=== PATIENT | male | born 1960 | race Caucasian/White ===

== ENCOUNTER → 2016-07-03 | Day surgery (SDC) | payer BC ==
[~2016-07-03] MED LIST: ATOR40TA59 PO; CARV6.252 PO; DILT360C PO; FENTANYL PF 100 MCG/2 ML VIAL. IV PRN; HYDROMORPHONE 2 MG/ML VIAL. IV PRN; IV RINGERS,LACTATED 1000ML 1,000 ML IV SCH; LIDOCAINE 1% 1 ML SYRINGE. ID PRN; LIDOCAINE 2% PF Vial for OR 5 ML VIAL. ONE; MORPHINE SULFATE 2 MG/ML DISP.SYRIN. IV PRN; ONDANSETRON PF 4 MG/2 ML VIAL. IV PRN; PROCHLORPERAZINE 10 MG/2 ML VIAL. IV PRN; PROPOFOL 40 ML IV ONE
[2016-07-03 08:50] VITALS: BP 152/86
== END | disposition home or self-care (01) ==
LOC: ENDOS 06:56 → EDBD 06:56
PROVIDERS: ATTEND Internal Medicine Gastroenterology
DX: Z12.11 Encounter for screening for malignant neoplasm of colon (principal); K64.0 First degree hemorrhoids; K57.30 Diverticulosis of large intestine without perforation or abscess without bleeding; E78.00 Pure hypercholesterolemia, unspecified; I10 Essential (primary) hypertension
CPT/HCPCS: 45378; G0500; J2704

== ENCOUNTER → 2018-04-07 | Outpatient (CLI) | payer BC ==
[2016-07-03 08:50] VITALS: BP 152/86
[~2018-04-07] MED LIST changes: +APIX5TAB PO; +ASPI81TA50 PO; +CARV6.2511 PO; -CARV6.252 PO; +CYAN-25 PO; -FENTANYL PF 100 MCG/2 ML VIAL. IV PRN; -HYDROMORPHONE 2 MG/ML VIAL. IV PRN; -IV RINGERS,LACTATED 1000ML 1,000 ML IV SCH; -LIDOCAINE 1% 1 ML SYRINGE. ID PRN; -LIDOCAINE 2% PF Vial for OR 5 ML VIAL. ONE; -MORPHINE SULFATE 2 MG/ML DISP.SYRIN. IV PRN; +OMEG-165 PO; -ONDANSETRON PF 4 MG/2 ML VIAL. IV PRN; -PROCHLORPERAZINE 10 MG/2 ML VIAL. IV PRN; -PROPOFOL 40 ML IV ONE
--- NOTE | 2018-04-07 11:57 | CARD ---
MR#: [id number] Date of Study: 04/07/2018 Ordering Physician: DORON BATRES, Referring Physician: DORON BATRES, Tech: Lisa Rodríguez APPROVED REPORT EXAM: Two-dimensional and M-mode echocardiogram with Doppler and color Doppler. Other Information Quality : AverageHR: 82bpm Rhythm : Atrial Fibrillation INDICATION Atrial Fibrillation Murmur RISK FACTORS Hypertension Hyperlipidemia 2D DIMENSIONS RVDd3.8 (2.9-3.5cm)Left Atrium(2D)4.2 (1.6-4.0cm) IVSd1.3 (0.7-1.1cm)Aortic Root(2D)4.0 (2.0-3.7cm) LVDd5.1 (3.9-5.9cm)LVOT Diameter2.6 (1.8-2.4cm) PWd1.1 (0.7-1.1cm)LVDs3.7 (2.5-4.0cm) FS (%) 26.8 %SV63.9 ml LVEF(%)52.1 (>50%) Aortic Valve AoV Peak Amilcar.138.9cm/sAoV VTI26.6cm AO Peak GR.7.7mmHgLVOT Peak Amilcar.92.2cm/s AO Mean GR.4mmHgAVA (VMAX)3.58cm2 AI P 1/2 [id number] Pulmonary Valve PV Peak Ehuzqlsr172.5cm/s Tricuspid Valve TR P. Jrrwbken019yc/sRAP WEFASPXN2gmIp TR Peak Gr.84pqQhBVZH15eqUn Pulmonary Vein S1 Ievgvipl01.3cm/sD2 Dfsrsbtn93.8cm/s PVa [id number] LEFT VENTRICLE The left ventricle is normal size. There is mild to moderate concentric left ventricular hypertrophy. The left ventricular systolic function is normal. The Ejection Fraction is 55-60%. There is normal L V segmental wall motion. Diastology indeterminent due to atrial fibrillation. RIGHT VENTRICLE The right ventricle is normal size. There is normal right ventricular wall thickness. The right ventr icular systolic function is normal. ATRIA The left atrium size is normal. The right atrium is mildly dilated. The interatrial septum is intact with no evidence for an atrial septal defect or patent foramen ovale as noted on 2-D or Doppler imagi ng. AORTIC VALVE The aortic valve is normal in structure and function. Doppler and Color Flow revealed mild aortic reg urgitation. There is no significant aortic valvular stenosis. MITRAL VALVE The mitral valve is normal in structure and function. There is no evidence of mitral valve prolapse. There is no mitral valve stenosis. Doppler and Color-flow revealed trace to mild mitral regurgitation . TRICUSPID VALVE The tricuspid valve is normal in structure and function. Doppler and Color Flow revealed trace tricus pid regurgitation with an estimated PAP of 25 mmHg. There is no tricuspid valve stenosis. PULMONIC VALVE The pulmonary valve is normal in structure and function. Doppler and Color Flow revealed trace to mil d pulmonic valvular regurgitation. GREAT VESSELS The aortic root is normal in size. The IVC is normal in size and collapses >50% with inspiration. PERICARDIAL EFFUSION There is no evidence of significant pericardial effusion. Critical Notification Critical Value: No <Conclusion> The left ventricular systolic function is normal. The Ejection Fraction is 55-60%. There is normal LV segmental wall motion. Trace to mild mitral regurgitation. Trace tricuspid regurgitation with an estimated PAP of 25 mmHg. There is no evidence of significant pericardial effusion. Signed by : Jhonatan Lora, Electronically Approved : 04/07/2018 11:55:30
== END | disposition home or self-care (01) ==
LOC: ECHO 10:04
PROVIDERS: ATTEND Internal Medicine Cardiovascular Disease
DX: I35.1 Nonrheumatic aortic (valve) insufficiency (principal); I48.91 Unspecified atrial fibrillation; I10 Essential (primary) hypertension; E78.5 Hyperlipidemia, unspecified
CPT/HCPCS: 93306

== ENCOUNTER → 2020-01-23 | Outpatient (CLI) | payer BC ==
[2018-04-22 11:00] VITALS: BP 141/75
--- NOTE | 2020-01-23 14:01 | CARD ---
MR#: [id number] Date of Study: 01/23/2020 Ordering Physician: BRIELLE RAMIREZ, Referring Physician: BRIELLE RAMIREZ, Tech: Lisa Rodríguez APPROVED REPORT EXAM: Two-dimensional and M-mode echocardiogram with Doppler and color Doppler. Other Information Quality : AverageHR: 70bpm INDICATION Tachy - Bradycardia syndrome Surgery/Intervention Pacemaker: Date: 2018 2D DIMENSIONS RVDd3.7 (2.9-3.5cm)Left Atrium(2D)3.7 (1.6-4.0cm) IVSd1.2 (0.7-1.1cm)Aortic Root(2D)3.8 (2.0-3.7cm) LVDd5.8 (3.9-5.9cm)LVOT Diameter2.3 (1.8-2.4cm) PWd1.1 (0.7-1.1cm)LVDs3.4 (2.5-4.0cm) FS (%) 41.1 %SV116.3 ml LVEF(%)71.2 (>50%) Aortic Valve AoV Peak Amilcar.150.7cm/sAoV VTI26.8cm AO Peak GR.9.1mmHgLVOT Peak Amilcar.90.6cm/s AO Mean GR.5mmHgAVA (VMAX)2.47cm2 AI P 1/2 [id number] Pulmonary Valve PV Peak Blzrmzhg28.4cm/s Tricuspid Valve TR P. Irvztiah268kd/sRAP EJJKLLYP5fgWc TR Peak Gr.33ibLqZUEL81deGq LEFT VENTRICLE The left ventricle is normal size. There is mild concentric left ventricular hypertrophy. The left ve ntricular systolic function is normal. The Ejection Fraction is 55-60%. Septal wall motion consistent with pacemaker activation. RIGHT VENTRICLE The right ventricle is normal size. There is normal right ventricular wall thickness. The right ventr icular systolic function is normal. There is a pacemaker lead in the right ventricle. ATRIA The left atrium size is normal. The right atrium is borderline dilated. The interatrial septum is int act with no evidence for an atrial septal defect or patent foramen ovale as noted on 2-D or Doppler i zee. AORTIC VALVE The aortic valve is normal in structure and function. Doppler and Color Flow revealed trace aortic re gurgitation. There is no significant aortic valvular stenosis. Calculated aortic valve area is 2.8 cm 2 with maximum pressure gradient of 9 mmHg and mean pressure gradient of 5 mmHg. MITRAL VALVE The mitral valve is normal in structure and function. There is no evidence of mitral valve prolapse. There is no mitral valve stenosis. Doppler and Color-flow revealed trace mitral regurgitation. TRICUSPID VALVE The tricuspid valve is normal in structure and function. Doppler and Color Flow revealed trace tricus pid regurgitation with an estimated PAP of 22 mmHg. There is no tricuspid valve stenosis. PULMONIC VALVE The pulmonic valve is not well visualized. Doppler and Color Flow revealed trace to mild pulmonic gary vular regurgitation. GREAT VESSELS The aortic root is borderline measuring 3.8 cm. The ascending aorta is Mildly dilated measuring 3.8 c m. The IVC is normal in size and collapses >50% with inspiration. PERICARDIAL EFFUSION There is no evidence of significant pericardial effusion. Critical Notification Critical Value: No <Conclusion> The left ventricular systolic function is normal. The Ejection Fraction is 55-60%. Pacer lead noted in RA/RV. Trace aortic regurgitation. Trace mitral regurgitation. Trace tricuspid regurgitation with an estimated PAP of 22 mmHg. There is no evidence of significant pericardial effusion. Signed by : Jhonatan Lora, Electronically Approved : 01/23/2020 14:01:13
== END ==
LOC: ECHO 10:48
PROVIDERS: ATTEND Internal Medicine Cardiovascular Disease
DX: I37.1 Nonrheumatic pulmonary valve insufficiency (principal); I49.5 Sick sinus syndrome; I51.7 Cardiomegaly
CPT/HCPCS: 93306

== ENCOUNTER → 2021-08-01 | Outpatient (CLI) | payer BC ==
[2018-04-22 11:00] VITALS: BP 141/75
--- NOTE | 2021-08-01 15:24 | CARD ---
MR#: [id number] Date of Study: 08/01/2021 Ordering Physician: BRIELLE RAMIREZ, Referring Physician: BRIELLE RAMIREZ, Tech: Martha Monsalve [facility] APPROVED REPORT EXAM: Two-dimensional and M-mode echocardiogram with Doppler and color Doppler. Other Information Quality : GoodHR: 73bpm INDICATION Arrhythmia Atrial Fibrillation 2D DIMENSIONS RVDd3.6 (2.9-3.5cm)Left Atrium(2D)4.2 (1.6-4.0cm) IVSd1.3 (0.7-1.1cm)Aortic Root(2D)4.1 (2.0-3.7cm) LVDd5.5 (3.9-5.9cm)LVOT Diameter2.1 (1.8-2.4cm) PWd1.2 (0.7-1.1cm)LVDs4.7 (2.5-4.0cm) FS (%) 14.3 %SV43.4 ml Aortic Valve AoV Peak Amilcar.118.6cm/Jennifer Peak GR.6.1mmHg LVOT Peak Amilcar.60.5cm/sAVA (VMAX)1.82cm2 Pulmonary Valve PV Peak Ihkgznfc133.0cm/s Tricuspid Valve TR P. Plwggojn354em/sRAP SDGMNPML1zbTe TR Peak Gr.91ecWgIADR47kaZz LEFT VENTRICLE The left ventricle is normal size. There is borderline concentric left ventricular hypertrophy. Left ventricular systolic function is intact. Left ventricular ejection fraction of 55 to 60%. Minimal api abdirahman hypokinesis. RIGHT VENTRICLE The right ventricle is normal size. There is normal right ventricular wall thickness. The right ventr icular systolic function is normal. A device lead is in the right ventricle. ATRIA The left atrium is mildly dilated. The right atrium is mildly dilated. AORTIC VALVE The aortic valve is normal in structure and function. Doppler and Color Flow revealed trace aortic re gurgitation. There is no significant aortic valvular stenosis. MITRAL VALVE The mitral valve is normal in structure and function. There is no mitral valve stenosis. Doppler and Color Flow revealed mild mitral regurgitation. TRICUSPID VALVE The tricuspid valve is normal in structure and function. Doppler and Color Flow revealed mild tricusp id regurgitation. The PA pressure was estimated at 30 mmHg. There is no tricuspid valve stenosis. GREAT VESSELS The aortic root is normal in size. PERICARDIAL EFFUSION There is no evidence of significant pericardial effusion. Critical Notification Critical Value: No <Conclusion> The left ventricle is normal size. Left ventricular systolic function is intact. Left ventricular ejection fraction of 55 to 60%. Minimal apical hypokinesis. There is borderline concentric left ventricular hypertrophy. A device lead is in the right ventricle. Doppler and Color Flow revealed trace aortic regurgitation. There is no significant aortic valvular stenosis. Doppler and Color Flow revealed mild mitral regurgitation. Doppler and Color Flow revealed mild tricuspid regurgitation. The PA pressure was estimated at 30 mmHg. Signed by : Jose Evans MD Electronically Approved : 08/01/2021 15:24:24
== END ==
LOC: ECHO 10:51
PROVIDERS: ATTEND Internal Medicine Cardiovascular Disease
DX: I08.1 Rheumatic disorders of both mitral and tricuspid valves (principal); I48.91 Unspecified atrial fibrillation
CPT/HCPCS: 93306; C8929